=== PATIENT | male | born 1995 | race Caucasian/White ===

== ENCOUNTER 2017-06-06 22:00 | Emergency (ER) | payer OTHER ==
[2017-06-06 22:07] VITALS: RESP 18
--- NOTE | 2017-06-06 22:25 | EDPHY ---
H & P Stated Complaint: fall on l shlr playing soccer Time Seen by Provider: 06/06/17 22:18 HPI/ROS: Chief Complaint: Left shoulder injury HPI: 22-year-old male was playing soccer when he fell on his left shoulder. He felt a pop in feels when out of place. Does not have a history of prior shoulder injuries. No loss of consciousness. Did not his head. No numbness or weakness. No other injuries at this time. ROS: 10 point Review of Systems is negative except as noted in the HPI. PMH: Denies Social History: No smoking Family History: non-contributory Physical Exam: Gen: Awake, Alert, No Distress HEENT: Nose: no rhinorrhea Eyes: PERRLA, EOMI Mouth: Moist mucosa Neck: Supple, no JVD Ext: Left shoulder is deformed consistent with an anterior dislocation. There are no bony tenderness or step-offs. He has decreased range of motion secondary to pain Skin: no rash Neuro: CN II-XII intact, Sensation grossly intact, Strength 5/5 in bilateral upper and lower extremities - Personal History Current Tetanus/Diphtheria Vaccine: Yes Current Tetanus Diphtheria and Acellular Pertussis (TDAP): Yes - Medical/Surgical History Hx Asthma: No Hx Chronic Respiratory Disease: No Hx Diabetes: No Hx Cardiac Disease: No Hx Renal Disease: No Hx Cirrhosis: No Hx Alcoholism: No Hx HIV/AIDS: No Hx Splenectomy or Spleen Trauma: No Other PMH: DENIES - Social History Smoking Status: Never smoked Constitutional: Initial Vital Signs Temperature (C) 36.4 C 06/06/17 22:04 Heart Rate 75 06/06/17 22:04 Respiratory Rate 18 06/06/17 22:04 Blood Pressure 151/99 H 06/06/17 22:04 O2 Sat (%) 96 06/06/17 22:04 O2 Delivery Mode Room Air Allergies/Adverse Reactions: No Known Allergies Allergy (Unverified 03/10/16 21:38) Home Medications: Medication Instructions Recorded NK [No Known Home Meds] 03/10/16 Medical Decision Making - Diagnostics Imaging Results: Imaging Impressions Shoulder X-Ray 06/06/17 22:10 Impression: 1. No fracture. 2. Large left cervical rib. Imaging: I viewed and interpreted images myself Procedures: Procedure: Dislocation reduction. The shoulder was reduced in the usual fashion without complications. Post reduction the patient's neurovascular exam is normal. Post reduction x-ray demonstrates reduction of the joint to the anatomic position. The procedure was performed by myself. ED Course/Re-evaluation: 22-year-old male with a shoulder dislocation which has been reduced by me. Postreduction films show no evidence of a Hill-Sachs deformity or any other fractures. Patient has been placed in a shoulder sling. Will be discharged with follow up with Orthopedics for further evaluation. Departure - Departure Disposition: Home, Routine, Self-Care Clinical Impression: Shoulder dislocation Condition: Good Instructions: Shoulder Dislocation (ED) Additional Instructions: Keep your arm in the sling to your followed up by Orthopedics. You may take ibuprofen alternating with acetaminophen as needed for pain. Apply ice for 15 min every 2 hr while awake. Follow up with Orthopedics in 3-4 days for re-evaluation. Return to the emergency depart for increasing pain, numbness, weakness, or any other concerns. Referrals: DEMETRA ATWOOD [Other] - As per Instructions Emmanuel Santizo MD [Medical Doctor] - As per Instructions
[2017-06-06 23:16] VITALS: BP 121/88; PULSE 66; TEMP 98.1; O2SAT 97
== END 2017-06-06 23:16 | disposition home or self-care (01) ==
PROC: 0RSKXZZ Reposition Left Shoulder Joint, External Approach (ICD-10-PCS; principal; 2017-06-06)
DX: S43.005A Unspecified dislocation of left shoulder joint, initial encounter (principal); W19.XXXA Unspecified fall, initial encounter; Y99.8 Other external cause status; Y93.66 Activity, soccer
CPT/HCPCS: L3980